=== PATIENT | female | born 1985 | race Hispanic/Latino ===

== ENCOUNTER 2019-07-07 02:48 | Inpatient (IN) | payer OTHER ==
[2019-07-07] MEDS ORDERED: Ringers Lactate 1,000 ML IV PRN (04:02)
[2019-07-07] MEDS ORDERED: BUTORPHANOL 1 MG/ML INJ IV PRN (04:02)
[2019-07-07] MEDS ORDERED: METHYLERGONOVINE 0.2MG/ML AMP IM PRN (04:08)
[2019-07-07] MEDS ORDERED: PROMETHAZINE 25 MG/ML VIAL IM PRN (04:08)
[2019-07-07] MEDS ORDERED: CARBOPROST TROME 250 MCG/ML IM PRN (04:08)
[2019-07-07 04:42] LABS: Absolute Lymphocytes (CBC) 2.7 K/uL (0.7-4.9); Basophils % 0.3 % (0-1.3); Hematocrit 36.1 % (36.0-45.0); MPV 8.5 fL (7.6-11.3); RBC Red Blood Cell Count 4.01 M/uL (3.86-4.86)
[2019-07-07] MEDS ORDERED: Ringers Lactate 1,000 ML IV SCH (05:00)
[2019-07-07] MEDS ORDERED: OXYTOCIN/LR 20 UNIT/1,000 ML BAG IV SCH ×2 (05:00→20:00)
[2019-07-07 05:03] VITALS: BMI 34.3
[2019-07-07 06:13] LABS: Urine Appearance CLEAR; Urine Bilirubin NEGATIVE (NEG); Urine Blood NEGATIVE (NEG); Urine Color YELLOW; Urine Glucose NEGATIVE (NEG); Urine Microscopic Reflex NO UMIC; Urine Protein NEGATIVE (NEG); Urine Urobilinogen 0.2 mg/dL (0.2-1.0)
--- NOTE | 2019-07-07 06:41 | PREOPHP ---
Date of Admission: 07/07/2019 A 34-year-old 3, para 2, at 39 weeks 2 days, Rh positive, immune to Rubella. Negative beta s trep screen, 2 cm this morning. Cervix is posterior, 50% effaced, baby well applied. Rupture of mem branes, clear fluid. FHTs normal, reactive. Anticipate more rapid progress once she gets to 4 to 5 cm. Patient will be requesting epidural. Full labor talk given. Anticipate delivery sometime later today. ERIC/MAISHA Voice ID: [id number]
[2019-07-07] MEDS ORDERED: LIDOCAINE 1% 20 ML MDV ONE (07:59)
[2019-07-07] MEDS ORDERED: ROPIVACAINE HCL 100 ML IV PRN (08:34)
[2019-07-07] MEDS ORDERED: FENTANYL CITR 100 MCG/2 ML IV ONE (08:35)
[2019-07-07] MEDS ORDERED: ROPIVACAINE HCL 0.2% 20ML AMP IV ONE (08:35)
[2019-07-07] MEDS ORDERED: FENTANYL/BUPIVACAINE/NS/PF 200 MCG/100 ML BAG EP PRN (11:35)
[2019-07-07] MEDS ORDERED: BUPIVACAINE 0.25% PF 30 ML VIAL IV ONE (14:32)
--- NOTE | 2019-07-07 14:32 | PN ---
Patient is having contractions regularly but not extremely uncomfortable yet. She has had 1 dose of Stadol. She is 3 cm, 70% effaced, vertex, -1 station. We will continue to increase the Pitocin. I think that once she reaches 5 cm we will start seeing more rapid dilation. She probably will be requ esting an epidural. ERIC/MAISHA Voice ID: [id number] Report ID: [id number]
[2019-07-07] MEDS ORDERED: DIPHENHYDRAMINE 25 MG TAB/CAP PO PRN (19:21)
[2019-07-07] MEDS ORDERED: BISACODYL 10 MG RECTAL SUPP RECT PRN (19:21)
[2019-07-07] MEDS ORDERED: DOCUSATE NA/SENNA CONC 1 TAB PO PRN (19:21)
[2019-07-07] MEDS ORDERED: Oxycodone HCl/Acetaminophen 1 TAB TAB PO PRN ×2 (19:21)
[2019-07-07 22:51] LABS: RPR (Rapid Plasma Reagin) NON-REACT (NON-REACT)
[2019-07-08] MEDS: ACETAMINOPHEN 500 MG TAB PO PRN ×2 (00:23→05:10)
--- NOTE | 2019-07-08 03:30 | OP ---
Surgeon: Meek Sorenson MD A 34-year-old 3, para 2, 39 weeks 2 days for induction approximately 2.5 to 3 cm on admission . Rupture of membranes, clear fluid. Stadol IV, Phenergan IM. Initially at 4.5 to 5 cm, requested and received epidural anesthesia. Second stage of approximately 30 minutes. Spontaneous vaginal del francisco of a 7-pound 15-ounce male , Apgars 9 and 9. No episiotomy. No lacerations worthy of hernández turing. Schultze delivery of the placenta, which was inspected and noted be heavily calcified, but o therwise normal. Less than 300 mL blood loss. Rh positive, immune to Rubella, and negative beta str ep screen. Patient tolerated all procedures well. Final Diagnoses: Term uterine 39 weeks 2 days, vaginal delivery, epidural anesthesia. ERIC/MAISHA Voice ID: [id number] Report ID: [id number]
--- NOTE | 2019-07-08 08:17 | PN ---
Patient is now good 4 cm. Baby is still at -1 station, may be slightly higher. Patient is doing solo te well. She has had 2 doses of Stadol, will be requesting epidural, but she says she will wait anot her half an hour and then if the baby comes down a little bit more into the pelvis then at that point we will order the epidural. Full discussion, anticipate more rapid progress once she gets to 5 cm a nd the baby comes down slightly more into the pelvis. ERIC/MAISHA Voice ID: [id number] Report ID: [id number]
[2019-07-08] MEDS: IBUPROFEN 200 MG TAB PO PRN ×2 (11:15→17:50)
[2019-07-08 16:20] VITALS: BP 133/74; TEMP 98.1
--- NOTE | 2019-07-09 01:28 | DS ---
Date of Discharge: 07/08/2019 History: A 34-year-old 3, para 2, 39 weeks 2 days, delivered a 7-pound 15-ounce male infant, Apgars 9 and 9. Epidural anesthesia. No episiotomy. No lacerations worthy of suturing. Delivery of the placenta, which was inspected and noted to be intact and normal. A 300 mL or less blood loss. Rh positive, immune to Rubella. Negative beta strep screen. ; afebrile, ambulating and voiding. Lochia is normal. No post epidural problems. Will be dismissed either later this evening or tomorrow morning. To report back to my office in 6 weeks for followup. To report any temperature elevation of 100 degrees or greater, severe pain, heavy bleeding, or any other type of abnormalities . Tdap has been administered during the . She has no post epidural problems. Final Diagnoses: Term intrauterine , 39 weeks 2 days, vaginal delivery, epidural anesthesia . ERIC/MAISHA Voice ID: [id number] Report ID: [id number]
[2019-07-10 04:18] LABS: HBsAG Nonreactive (Nonreactive)
== END 2019-07-08 22:25 | disposition home or self-care (01) | DRG 807 ==
LOC: 2ND-WC 03:57
PROVIDERS: ADMIT Specialist; ATTEND Specialist
PROC: 10E0XZZ Delivery of Products of Conception, External Approach (ICD-10-PCS; principal; 2019-07-07)
PROC: 10907ZC Drainage of Amniotic Fluid, Therapeutic from Products of Conception, Via Natural or Artificial Opening (ICD-10-PCS; 2019-07-07)
DX: O80 Encounter for full-term uncomplicated delivery (principal); Z37.0 Single live birth; Z3A.39 39 weeks gestation of pregnancy; Z88.0 Allergy status to penicillin
CPT/HCPCS: 36415; 81003; 85025; 86592; 86901; 87340; J0595; J2210; J2550; J2590; J7120

== ENCOUNTER 2020-08-15 03:27 | Inpatient (IN) | payer OTHER, SELFPAY ==
--- OUTSIDE RECORDS SUMMARY | 2020-08-15 03:29 | XMS REPORT | Continuity of Care Document ---
:[address] [facility] t Address [address] [place] [address] Care Team Providers Name Role Phone Yael Ulloa MD Attending Clinician Problems This patient has no known problems. Allergies, Adverse Reactions, Alerts This patient has no known allergies or adverse reactions. Medications This patient has no known medications. Procedures This patient has no known procedures. Encounters Start End Encounter Admission Attending Care Care Encounter Source Date/Time Date/Time Type Type Clinicians Facility Department ID 2020-08-07 2020-08-07 Emergency LASHAWN Ulloa [id number] 05:34:00 06:52:00 Autumn Estrada [id number] [place] [id number] [place] [id number] Results This patient has no known results.
--- OUTSIDE RECORDS SUMMARY | 2020-08-15 03:30 | XMS REPORT | Summary of Care ---
:1985 Author Organization [facility] - Health Address [address] [place] [id number] Care Team Providers Name Role Phone Pcp, Does Not Have A Primary Care Provider Reason for Referral Other (OCTAVIO) Status Reason Specialty Diagnoses / Referred By Referred To Procedures Contact Contact New Request Diagnoses Right upper quadrant abdominal pain Autumn Ulloa, Tammie Patel, Procedures Discharge Follow-up: Specialty Provider TAMMIE PATEL; 3-5 Days MD VENTURA [address] [facility] [address] [facility] [id number] [place], [place] Beni 2.100 [address] [place], [place] Phone: [phone] Phone: Fax: Reason for Visit Reason Comments Abdominal Pain Auth/Cert Status Reason Specialty Diagnoses / Referred By Referred To Procedures Contact Contact Emergency Medicine Ad[facility] Em ergency Dept [address] [place] [address] Fax: Encounter Details Date Type Department Care Team Description 08/07/2020 Emergency ADC-Emergency Autumn Ulloa Right upp er quadrant Department abdominal pain (Primary [address] [facility] [address]) [place] [address] [id number] [place] [address] [phone] Allergies Active Allergy Reactions Severity Noted Date Comments Penicillins Hives 02/01/2016 documented as of this encounter (statuses as of 08/07/2020) Medications Medication Sig Dispensed Refills Start Date End Date Status ondansetron (ZOFRAN, Take 1 tablet by 12 tablet 0 02/01/2016 Active HYDROCHLORIDE,) 4 mouth every 6 (six) mg tablet hours as needed for Nausea and Vomiting (N/V). tramadol-acetaminophe Take 1 tablet by 12 tablet 0 02/01/2016 Active n (ULTRACET) 37.5-325 mouth every 6 (six) mg per tablet hours as needed for Pain. dicyclomine 20 mg Take 1 tablet by 20 tablet 0 08/07/2020 Active tabletIndications: mouth every 6 (six) Right upper quadrant hours as needed for abdominal pain Abdominal pain. ondansetron (ZOFRAN) Take 1 tablet by 12 tablet 0 08/07/2020 Active 4 mg mouth every 8 tabletIndications: (eight) hours as Right upper quadrant needed for Nausea abdominal pain and Vomiting (N/V). documented as of this encounter (statuses as of 08/07/2020) Active Problems No known active problemsdocumented as of this encounter (statuses as of 08/07/2020) Social History Tobacco Use Types Packs/Day Years Used Date Never Assessed Sex Assigned at Date Recorded Not on file COVID-19 Exposure Response Date Recorded In the last month, have you been in contact with No / Unsure 08/07/2020 5:36 AM SOLDERER FURNACE someone who was confirmed or suspected to have Coronavirus / COVID-19? documented as of this encounter Last Filed Vital Signs Vital Sign Reading Time Taken Comments Blood Pressure 109/66 08/07/2020 6:05 AM SOLDERER FURNACE Pulse 85 08/07/2020 6:30 AM SOLDER[facility] FURNACE Temperature 37.4 C (99.3 F) 08/07/2020 5:42 AM SOLDERER FURNACE Respiratory Rate 18 08/07/2020 5:42 AM SOLDERER FURNACE Oxygen Saturation 99% 08/07/2020 6:30 AM SOLDERER FURNACE Inhaled Oxygen Concentration - - Weight 81.6 kg (180 lb) 08/07/2020 5:42 AM SOLDERER FURNACE Height 167.6 cm (5' 6") 08/07/2020 5:42 AM SOLDERER FURNACE Body Mass Index 29.05 08/07/2020 5:42 AM SOLDERER FURNACE documented in this encounter Discharge Instructions Autumn Jaffe MD - 08/07/2020 DIAGNOSIS Diagnoses that have been ruled out: None Diagnoses that are still under consideration: None Final diagnoses: Right upper quadrant abdominal pain NO LIFE-THREATENING FINDINGS ON TODAY'S EXAM. PROCEDURES IN THE ER TODAY: Orders Placed This Encounter Procedures Complete Metabolic Panel CBC with Differential Lipase, Serum Urinalysis POCT Test MEDICATIONS ADMINISTERED IN THE ER TODAY AND DISCHARGE MEDICATIONS: Orders Placed This Encounter Medications morpHINE injection 4 mg ondansetron (ZOFRAN (PF)) injection 4 mg FOLLOW-UP RECOMMENDATIONS: RECOMMEND FOLLOW-UP WITH A PRIMARY CARE PROVIDER OR SPECIALIST IN 2-5 DAYS, ESPECIALLY IF NO IMPROVEMENT IN SYMPTOMS. MAY FOLLOW-UP WITH A PROVIDER OF YOUR CHOICE, SUCH : 1. A PHYSICIAN OF YOUR CHOICE 2. [facility], . LOCATIONS IN [facility] 3. [facility], [address] [place] [address]; [phone] OR, IF YOU WISH TO FOLLOW-UP WITHIN THE [facility], MAY TRY THESE OPTIONS (CLINIC APPOINTMENTS AVAILABLE ON [id number] BASIS): 1. SCHEDULE AN APPOINTMENT ONLINE AT WWW.[facility] 2. OR CALL THE [facility] ACCESS CENTER AT OR 3. OR CALL YOUR [facility] PHYSICIAN'S OFFICE DIRECTLY IF YOU ARE ALREADY AN ESTABLISHED [facility] PATIENT. RETURN TO ER FOR WORSENING OF SYMPTOMS documented in this encounter ED Notes Alisia Gale RN - 08/07/2020 5:39 AM CSTCC: Pt reports RUQ abdominal pain off and on x 2 mths. Pt reports her PCP thinks it is her gallbladder, but she hasn't followed up with specialist or had any tests. Pt reports acid reducers help, and the teofilo pizza she ate tonight made it worse. Pt denies vomiting. 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 Pt has had intermittent episodes for the past several months and was evaluatedby her PCP Dr. Nelson in [place] for same and told she might have gallstones. Current episode began last HS after patient ate some pizzas. Denies any fever. 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 used: No Abdominal Pain Pain location: Epigastric Pain quality: sharp Pain radiates to: RUQ Pain severity: Severe Onset quality: Gradual Duration: 12 hours Timing: Intermittent Chronicity: Recurrent Context: diet changes and eating Context: not alcohol use, not awakening from sleep, not laxative use, not medication withdrawal, notrecent illness, not recent travel, not retching, not sick contacts, not suspicious food intake and not trauma Relieved by: Nothing Worsened by: Nothing Ineffective treatments: Antacids Associated symptoms: nausea Associated symptoms: no anorexia, no belching, no chest pain, no chills, no constipation, no cough, no diarrhea, no dysuria, no fatigue, no fever, no flatus, no hematemesis, no hematochezia, no hematuria, no melena, no shortness of breath, no sore throat, no vaginal bleeding, no vaginal discharge and no vomiting Risk factors: not and no recent hospitalization Past Medical History/Immunizations: History reviewed. No pertinent past medical history. Tetanus received in last 5 years: Unknown Allergies: Allergies Allergen Reactions Pcn [Penicillins] Hives Past Social History: Substance & Sexual Activity No substance use or sexual activity history on file. Past Surgical History: History reviewed. No pertinent surgical history. Review of Systems: Review of Systems Constitutional: Negative. Negative for chills, fatigue and fever. HENT: Negative. Negative for sore throat. Eyes: Negative. Respiratory: Negative. Negative for cough and shortness of breath. Breasts: Negative. Cardiovascular: Negative. Negative for chest pain. Gastrointestinal: Positive for abdominal pain and nausea. Negative for anorexia, constipation, diarrhea, flatus, hematemesis, hematochezia, melena and vomiting. Genitourinary: Negative. Negative for dysuria, hematuria, vaginal bleeding and vaginal discharge. Musculoskeletal: Negative. Skin: Negative. Neurological: Negative. Psychiatric/Behavioral: Negative. Endocrine: Endocrine negative Physical Exam: ED Triage Vitals [08/07/20 0542] Weight 81.6 kg (180 lb) Actual or estimated Estimated by patient/family report Height 1.676 m (5' 6") BP (!) 145/93 Pulse 96 Resp 18 Temp 37.4 C (99.3 F) Temp source Oral SpO2 100 % Measured on Room air Physical Exam Vitals signs and nursing note reviewed. Constitutional: General: She is not in acute distress. Appearance: Normal appearance. She is well-developed and normal weight. She is not ill-appearing,toxic-appearing or diaphoretic. HENT: Head: Normocephalic and atraumatic. Nose: Nose normal. No congestion or rhinorrhea. Mouth/Throat: Mouth: Mucous membranes are moist. Pharynx: Oropharynx is clear. No oropharyngeal exudate or posterior oropharyngeal erythema. Eyes: General: No scleral icterus. Right eye: No discharge. Left eye: No discharge. Conjunctiva/sclera: Conjunctivae normal. Pupils: Pupils are equal, round, and reactive to light. Neck: Musculoskeletal: Normal range of motion and neck supple. No neck rigidity or muscular tenderness. Thyroid: No thyromegaly. Cardiovascular: Rate and Rhythm: Normal rate and regular rhythm. Pulses: Normal pulses. Heart sounds: Normal heart sounds. No murmur. Pulmonary: Effort: Pulmonary effort is normal. No respiratory distress. Breath sounds: Normal breath sounds. No stridor. No wheezing, rhonchi or rales. Chest: Chest wall: No tenderness. Abdominal: General: Bowel sounds are normal. There is no distension. Palpations: Abdomen is soft. There is no mass. Tenderness: There is no abdominal tenderness. There is no right CVA tenderness, left CVA tenderness, guarding or rebound. Hernia: No hernia is present. Musculoskeletal: Normal range of motion. General: No swelling, tenderness, deformity or signs of injury. Right lower leg: No edema. Left lower leg: No edema. Lymphadenopathy: Cervical: No cervical adenopathy. Skin: General: Skin is warm and dry. Capillary Refill: Capillary refill takes less than 2 seconds. Coloration: Skin is not jaundiced or pale. Findings: No bruising, erythema, lesion or rash. Neurological: General: No focal deficit present. Mental Status: She is alert and oriented to person, place, and time. Cranial Nerves: No cranial nerve deficit. Sensory: No sensory deficit. Motor: No weakness or abnormal muscle tone. Coordination: Coordination normal. Gait: Gait normal. Deep Tendon Reflexes: Reflexes normal. Psychiatric: Behavior: Behavior normal. Thought Content: Thought content normal. Judgment: Judgment normal. Radiology: No results found for this visit on 08/07/20. Lab Results (24h): Recent Results (from the past 24 hour(s)) Complete Metabolic Panel Collection Time: 08/07/20 5:47 AM Result Value Ref Range NA 140 135 - 145 mmol/L K 3.7 3.5 - 5.0 mmol/L CL 105 98 - 108 mmol/L CO2 TOTAL 26 23 - 31 mmol/L AGAP 9 2 - 16 BUN 12 7 - 23 mg/dL GLUCOSE 109 70 - 110 mg/dL CREATININE 0.67 0.50 - 1.04 mg/dL TOTAL BILI 0.5 0.1 - 1.1 mg/dL CALCIUM 9.1 8.6 - 10.6 mg/dL T PROTEIN 7.6 6.3 - 8.2 g/dL ALBUMIN 4.2 3.5 - 5.0 g/dL ALK PHOS 65 34 - 122 U/L ALTv 9 5 - 35 U/L AST(SGOT) 17 13 - 40 U/L eGFR Calculation (Non-) 100.8 mL/min/1.73m2 eGFR Calculation () 122.1 mL/min/1.73m2 CBC with Differential Collection Time: 08/07/20 5:47 AM Result Value Ref Range WBC 8.85 4.30 - 11.10 10*3/L RBC 4.13 3.93 - 5.25 10*6/L HGB 11.6 11.6 - 15.0 g/dL HCT 36.7 35.7 - 45.2 % MCV 88.9 80.6 - 95.5 fL MCH 28.1 25.9 - 32.8 pg MCHC 31.6 31.6 - 35.1 g/dL RDW-SD 40.0 39.0 - 49.9 fL RDW-CV 12.2 12.0 - 15.5 % PLT 473 (H) 166 - 358 10*3/L MPV 9.9 9.5 - 12.9 fL NRBC/100 WBC 0.0 0.0 - 10.0 /100 WBCs NRBC x10^3 <0.01 10*3/L GRAN MAT (NEUT) % 69.1 % IMM GRAN % 0.20 % LYMPH % 22.1 % MONO % 4.9 % EOS % 3.1 % BASO % 0.6 % GRAN MAT x10^3(ANC) 6.12 1.88 - 7.09 10*3/uL IMM GRAN x10^3 <0.03 0.00 - 0.06 10*3/uL LYMPH x10^3 1.96 1.32 - 3.29 10*3/uL MONO x10^3 0.43 0.33 - 0.92 10*3/uL EOS x10^3 0.27 0.03 - 0.39 10*3/uL BASO x10^3 0.05 0.01 - 0.07 10*3/uL Lipase, Serum Collection Time: 08/07/20 5:47 AM Result Value Ref Range LIPASE 97 0 - 220 U/L Urinalysis Collection Time: 08/07/20 5:47 AM Result Value Ref Range APPEARANCE Clear Clear COLOR Yellow Yellow PH 8.0 4.8 - 8.0 SP GRAVITY 1.015 1.003 - 1.030 GLU U QUAL Negative Negative BLOOD Trace (A) Negative KETONES Negative Negative PROTEIN Negative Negative UROBILIN 0.2 mg/dL 0-1.0 mg/dL BILIRUBIN Negative Negative NITRITE Negative Negative LEUK SHANE Negative Negative RBC/HPF 2 0 - 3 HPF WBC/HPF 2 0 - 5 HPF BACTERIA Few (A) Negative SQ EPITH 2 HPF POCT Test Collection Time: 08/07/20 5:49 AM Result Value Ref Range POCT PREG Negative On board controls acceptable with C Line Present POCT PREG LOT # [id number] POCT PREG TEST DATE 11/17/2021 Orders and Treatments: Orders Placed This Encounter Procedures Complete Metabolic Panel CBC with Differential Lipase, Serum Urinalysis POCT Test Orders Placed This Encounter Medications morpHINE injection 4 mg ondansetron (ZOFRAN (PF)) injection 4 mg dicyclomine 20 mg tablet ondansetron (ZOFRAN) 4 mg tablet ED COURSE ED Course as of Aug 07 06 Sat Aug 07, 2020 0630 6:30 AM- Pt re-examined. Pain completely resolved Will refer patient for further evaluation and definitive management [WY] ED Course User Index [WY] Autumn Ulloa MD MDM: Coding Scoring Tools: No data recorded Diagnosis/Impression: ICD-10-CM ICD-9-CM 1. Right upper quadrant abdominal pain R10.11 789.01 Disposition/Condition: ED Disposition ED Disposition Condition Comment Disch - Home Stable Discharge Medications: Patient's Medications START taking these medications DICYCLOMINE 20 MG TABLET Take 1 tablet by mouth every 6 (six) hours as needed for Abdominal pain. ONDANSETRON (ZOFRAN) 4 MG TABLET Take 1 tablet by mouth every 8 (eight) hours as needed for Nausea and Vomiting (N/V). CONTINUE taking these medications which have NOT CHANGED ONDANSETRON (ZOFRAN, HYDROCHLORIDE,) 4 MG TABLET Take 1 tablet by mouth every 6 (six) hours as needed for Nausea and Vomiting (N/V). TRAMADOL-ACETAMINOPHEN (ULTRACET) 37.5-325 MG PER TABLET Take 1 tablet by mouth every 6 (six) hours as needed for Pain. START taking Modified Medications as Prescribed No medications on file STOP taking these medications No medications on file Follow-up: Contact information for follow-up Pcp, Patient Does Not Have A Relationship: PCP - [address] [address] Electronically signed by: Autumn Ulloa MD 08/07/2020 6:25 AM ERER FURNACE documented in this encounter Miscellaneous Notes ED Nurse Note - Alisia Gale, RN - 08/07/2020 6:38 AM CSTPt given printed and verbal discharge instructions regarding RUQ abd pain, encouraged hydration, avoiding fried, greasy foods Prescriptions provided Pt verbalized understanding of instructions,pt encouraged to follow up with pcp and or Dr. Patel Advised to seek medical attention for new/prolonged/worsening of symptoms, No adverse reaction to meds given in ER noted upon discharge PIV d'cd, dressing to site, catheter in tact. Awake, alert oriented, resp reg unlabored, skin w/d, pt leaving in no apparent distress, ERER FURNACE documented in this encounter Plan of Treatment Health Maintenance Due Date Last Done Comments VARICELLA VACCINES (1 of 2 - 1987 2-dose childhood series) Depression Screening 1998 DTaP,Tdap,and Td Vaccines ( - 2005 Tdap) PAP SMEAR 07/21/2013 07/21/2010 INFLUENZA VACCINE (#1) 2020 PNEUMOCOCCAL 0-64 YEARS COMBINED Aged Out No longer eligible based on SERIES patient's age to complete this topic documented as of this encounter Procedures Procedure Name Priority Date/Time Associated Comments Diagnosis POCT TEST Routine 08/07/2020 5:49 AM Right upper R esults for this SOLDERER FURNACE quadrant abdominal procedure are in pain the results section. URINALYSIS STAT 08/07/2020 5:47 AM Right upper Results for this SOLDERER FURNACE quadrant abdominal procedure are in pain the results section. CBC WITH DIFF STAT 08/07/2020 5:47 AM Right upper Results for this SOLDERER FURNACE quadrant abdominal procedure are in pain the results section. COMP. METABOLIC STAT 08/07/2020 5:47 AM Right upper Resul ts for this PANEL ([id number]) SOLDERER FURNACE quadrant abdominal procedur e are in pain the results section. LIPASE STAT 08/07/2020 5:47 AM Right upper Results for this SOLDERER FURNACE quadrant abdominal procedure are in pain the results section. documented in this encounter Results POCT Test (08/07/2020 5:49 AM SOLDERER FURNACE) Pathologist Sig nature POCT PREG Negative On board controls acceptable Present with C Line POCT PREG LOT # [id number] POCT PREG TEST DATE 11/17/2021 Specimen Urine - URINE, CLEAN CATCH Urinalysis (08/07/2020 5:47 AM SOLDERER FURNACE) [facility] Sig critical access hospital APPEARANCE Clear Clear [facility] COLOR Yellow Yellow [facility] PH 8.0 4.8 - 8.0 [facility] SP GRAVITY 1.015 1.003 - 1.030 [facility] GLU U QUAL Negative Negative [facility] BLOOD Trace (A) Negative [facility] KETONES Negative Negative [facility] PROTEIN Negative Negative [facility] UROBILIN 0.2 mg/dL 0-1.0 mg/dL [facility] BILIRUBIN Negative Negative [facility] NITRITE Negative Negative [facility] LEUK SHANE Negative Negative [facility] RBC/HPF 2 0 - 3 HPF [facility] WBC/HPF 2 0 - 5 HPF [facility] BACTERIA Few (A) Negative [facility] SQ EPITH 2 HPF [facility] Specimen Urine - URINE, CLEAN CATCH Performing Organization Address [facility] Phone Number [facility] CLIA: [id number] [place] [address] Lipase, Serum (08/07/2020 5:47 AM SOLDERER FURNACE) [facility] LIPASE 97 0 - 220 U/L [facility] Specimen Blood - VENOUS Performing Organization Address City/[facility] Phone Number [facility] CLIA: [id number] [place] [address] CBC with Differential (08/07/2020 5:47 AM SOLDERER FURNACE) [facility] WBC 8.85 4.30 - 11.10 [facility] 10*3/L [facility] RBC 4.13 3.93 - 5.25 [facility] 10*6/L [facility] HGB 11.6 11.6 - 15.0 g/dL [facility] HCT 36.7 35.7 - 45.2 % [facility] MCV 88.9 80.6 - 95.5 fL [facility] MCH 28.1 25.9 - 32.8 pg [facility] MCHC 31.6 31.6 - 35.1 g/dL [facility] RDW-SD 40.0 39.0 - 49.9 fL [facility] RDW-CV 12.2 12.0 - 15.5 % [facility] PLT 473 (H) 166 - 358 [facility] 10*3/L [facility] MPV 9.9 9.5 - 12.9 fL [facility] NRBC/100 WBC 0.0 0.0 - 10.0 /100 [facility] WBCs [facility] NRBC x10^3 <0.01 10*3/L [facility] GRAN MAT (NEUT) % 69.1 % [facility] IMM GRAN % 0.20 % [facility] LYMPH % 22.1 % [facility] MONO % 4.9 % [facility] EOS % 3.1 % [facility] BASO % 0.6 % [facility] GRAN MAT x10^3(ANC) 6.12 1.88 - 7.09 [facility] 10*3/uL [facility] IMM GRAN x10^3 <0.03 0.00 - 0.06 [facility] 10*3/uL [facility] LYMPH x10^3 1.96 1.32 - 3.29 [facility] 10*3/uL [facility]ITAL [facility] MONO x10^3 0.43 0.33 - 0.92 [facility] 10*3/uL [facility]ITAL [facility] EOS x10^3 0.27 0.03 - 0.39 [facility] 10*3/uL H[facility]ITAL [facility] BASO x10^3 0.05 0.01 - 0.[address]3/uL [facility] Specimen Blood - VENOUS Performing Organization Address City/State/Zipcode Phone Number [facility] CLIA: [id number] [place] [address] Complete Metabolic Panel (08/07/2020 5:47 AM SOLDERER FURNACE) Pathologist Sig nature NA 140 135 - 145 mmol/L [facility] K 3.7 3.5 - 5.0 mmol/L [facility] CL 105 98 - 108 mmol/L [facility] CO2 TOTAL 26 23 - 31 mmol/L [facility] AGAP 9 2 - 16 [facility] BUN 12 7 - 23 mg/dL [facility] GLUCOSE 109 70 - 110 mg/dL [facility] CREATININE 0.67 0.50 - 1.04 [facility] mg/dL HOSPITAL [facility] TOTAL BILI 0.5 0.1 - 1.1 mg/dL [facility] CALCIUM 9.1 8.6 - 10.6 mg/dL [facility] T PROTEIN 7.6 6.3 - 8.2 g/dL [facility] ALBUMIN 4.2 3.5 - 5.0 g/dL [facility] ALK PHOS 65 34 - 122 U/L [facility] ALTv 9 5 - 35 U/L [facility] AST(SGOT) 17 13 - 40 U/L [facility] eGFR Calculation 100.8 mL/min/1.73m2 [facility] (Non-) [facility] LAB[facility] Y eGFR Calculation 122.1 mL/min/1.73m2 [facility] () [facility] Specimen Blood - VENOUS Narrative Performed At Association of Glomerular Filtration Rate (GFR) [facility] and Staging of Kidney Disease* + + +- + | GFR (mL/min/1.73 m2) | With Kidney Damage | Without Kidney Damage + + +- + | >90 | Stage one | Normal + + +- + | 60-89 | Stage two | Decreased GFR + + +- + | 30-59 | Stage three | Stage three + + +- + | 15-29 | Stage four | Stage four + + +- + | <15 (or dialysis) | Stage five | Stage five + + +- + *Each stage assumes the associated GFR level has been in effect for at least three months. Stages 1 to 5, with or without kidney disease, indicate chronic kidney disease. Notes: Determination of stages one and two (with eGFR >59mL/min/1.73 m2) requires estimation of kidney damage for at least three months as defined by structural or functional abnormalities of the kidney, manifested by either: Pathological abnormalities or Markers of kidney damage (including abnormalities in the composition of the blood or urine or abnormalities in imaging tests). Performing Organization Address City/State/Zipcode Phone Number [facility] CLIA: [id number] [place] [address] documented in this encounter Visit Diagnoses Diagnosis Right upper quadrant abdominal pain - Pr imary Abdominal pain, right upper quadrant documented in this encounter Administered Medications Medication Order MAR Action Action Date Dose Rate Site morpHINE injection 4 mg Given 08/07/2020 5:48 AM SOLDERER FURNACE 4 mg 4 mg, Slow IV Push, ONCE, 1 dose, 08/07/20 at 0700, STAT ondansetron (ZOFRAN (PF)) injection 4 mg Given 08/07/2020 5:48 AM SOLDERER FURNACE 4 mg 4 mg, Slow IV Push, ONCE, 1 dose, 08/07/20 at 0700, OCTAVIO documented in this encounter
[2020-08-15] MEDS ORDERED: ONDANSETRON 4 MG/2 ML VIAL ONE ×2 (04:11→11:42)
[2020-08-15] MEDS ORDERED: NA CHLORIDE 0.9% 1,000 ML ONE (04:11)
[2020-08-15] MEDS ORDERED: MORPHINE 4 MG/ML SYR ONE ×2 (04:11→08:00)
[2020-08-15 04:35] LABS: Absolute Lymphocytes (CBC) 2.6 K/uL (0.7-4.9); Basophils % 0.8 % (0-1.3); Hematocrit 40.2 % (36.0-45.0); Lymphocytes % 23.8 % (15.3-44.8); MPV 8.5 fL (7.6-11.3); RBC Red Blood Cell Count 4.66 M/uL (3.86-4.86)
[2020-08-15] MEDS ORDERED: FAMOTIDINE 20 MG/2 ML VIAL IV ONE (04:38)
[2020-08-15 04:50] LABS: ALT/SGPT 15 U/L (12-78); AST/SGOT 12 U/L (15-37); Albumin 3.8 g/dL (3.4-5.0); Alkaline Phosphatase 78 U/L (45-117); BUN Blood Urea Nitrogen 13 mg/dL (7-18); Bicarbonate 29 mmol/L (21-32); Bilirubin Direct < 0.1 mg/dL (0-0.2); Bilirubin Total 0.4 mg/dL (0.2-1.0); Glucose Level 97 mg/dL (74-106); Lipase 146 U/L (73-393); Potassium 3.5 mmol/L (3.5-5.1); Protein, Total 8.5 g/dL (6.4-8.2); Sodium Level 140 mmol/L (136-145)
[2020-08-15 05:58] LABS: Urine Blood 2+ (NEG); Urine Glucose NEGATIVE (NEG); Urine Protein NEGATIVE (NEG); Urine pH 6.5 (5.0-7.0)
[2020-08-15] MEDS ORDERED: METRONIDAZOLE 500mg IVPB 500 MG/100 ML BAG IV ONE (08:00)
[2020-08-15] MEDS ORDERED: CIPROFLOXACIN 400mg IV 400 MG/200 ML BAG IV ONE (08:00)
[2020-08-15] MEDS ORDERED: PROMETHAZINE INJ 25 MG/ML AMP ONE (08:02)
--- NOTE | 2020-08-15 08:07 | EDPHYS ---
Physician Documentation [facility] Name: Renae Menjivar Age: 35 yrs Sex: Female : 1985 Arrival Date: 08/15/2020 Time: 03:28 Bed 19 Private MD: Shalini Nelson H ED Physician Jhoan Chowdary HPI: 08/15 04:20 This 35 yrs old Female presents to ER via Ambulatory with complaints of mh7 Abdominal Pain - RUQ. 04:20 The patient presents with abdominal pain in the right upper quadrant. Onset: The mh7 symptoms/episode began/occurred 3 month(s) ago, and became worse today. The symptoms radiate to back. Associated signs and symptoms: Pertinent positives: nausea and vomiting, Pertinent negatives: anorexia, blood in stools, chest pain, constipation, diarrhea, dysuria, fever, headache, hematuria, palpitations, shortness of breath, vaginal discharge, vomiting blood. The symptoms are described as intermittent, vague, waxing/waning. Modifying factors: The symptoms are alleviated by nothing, the symptoms are aggravated by nothing. Severity of pain: At its worst the pain was moderate today, in the emergency department the pain is unchanged. 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 - Social history:: Smoking status: Patient denies any tobacco usage or history of. ROS: 04:20 Constitutional: Negative for fever, chills, and weight loss, Eyes: Negative for injury, mh7 pain, redness, and discharge, ENT: Negative for injury, pain, and discharge, Neck: Negative for injury, pain, and swelling, Cardiovascular: Negative for chest pain, palpitations, and edema, Respiratory: Negative for shortness of breath, cough, wheezing, and pleuritic chest pain, : Negative for injury, bleeding, discharge, and swelling, MS/Extremity: Negative for injury and deformity, Skin: Negative for injury, rash, and discoloration, Neuro: Negative for headache, weakness, numbness, tingling, and seizure, Psych: Negative for depression, anxiety, suicide ideation, homicidal ideation, and hallucinations, Allergy/Immunology: Negative for hives, rash, and allergies, Endocrine: Negative for neck swelling, polydipsia, polyuria, polyphagia, and marked weight changes, Hematologic/Lymphatic: Negative for swollen nodes, abnormal bleeding, and unusual bruising. Exam: 04:20 Head/Face: Normocephalic, atraumatic. Eyes: Pupils equal round and reactive to light, mh7 extra-ocular motions intact. Lids and lashes normal. Conjunctiva and sclera are non-icteric and not injected. Cornea within normal limits. Periorbital areas with no swelling, redness, or edema. Neck: Trachea midline, no thyromegaly or masses palpated, and no cervical lymphadenopathy. Supple, full range of motion without nuchal rigidity, or vertebral point tenderness. No Meningismus. Chest/axilla: Normal chest wall appearance and motion. Nontender with no deformity. No lesions are appreciated. Cardiovascular: Regular rate and rhythm with a normal S1 and S2. No gallops, murmurs, or rubs. Normal PMI, no JVD. No pulse deficits. Respiratory: Lungs have equal breath sounds bilaterally, clear to auscultation and percussion. No rales, rhonchi or wheezes noted. No increased work of breathing, no retractions or nasal flaring. 04:20 Back: No spinal tenderness. No costovertebral tenderness. Full range of motion. Skin: Warm, dry with normal turgor. Normal color with no rashes, no lesions, and no evidence of cellulitis. MS/ Extremity: Pulses equal, no cyanosis. Neurovascular intact. Full, normal range of motion. Neuro: Awake and alert, GCS 15, oriented to person, place, time, and situation. Cranial nerves II-XII grossly intact. Motor strength 5/5 in all extremities. Sensory grossly intact. Cerebellar exam normal. Normal gait. Psych: Awake, alert, with orientation to person, place and time. Behavior, mood, and affect are within normal limits. 04:20 Constitutional: The patient appears in no acute distress, alert, awake, uncomfortable. 04:20 Abdomen/GI: Inspection: obese Bowel sounds: normal, in all quadrants, Palpation: moderate abdominal tenderness, in the epigastric area and right upper quadrant, Rectal exam: the exam is deferred, because of patient request, Indicators: McBurney's point is not tender, Rodriguez's sign is negative, Rovsing's sign is negative, Obturator sign is negative, Psoas sign is negative, Liver: no appreciated palpable abnormalities, Hernia: not appreciated. Vital Signs: 03:45 BP 144 / 89; Pulse 67; Resp 18; Temp 98.4; Pulse Ox 100% on R/A; ll2 03:50 BP 144 / 89; Pulse 79; Resp 20; Temp 98.3; Pulse Ox 96% on R/A; ll2 04:50 BP 117 / 77; Pulse 71; Resp 16; Pulse Ox 100% on R/A; ll2 05:46 BP 118 / 75; Pulse 75; Resp 16; Pulse Ox 100% ; ll2 07:00 BP 112 / 67; Pulse 57; Resp 16; Pulse Ox 97% ; bp 08:00 BP 121 / 72; Pulse 80; Resp 16; Pulse Ox 99% ; bp 09:00 BP 112 / 75; Pulse 64; Resp 16; Pulse Ox 99% ; bp 10:00 BP 112 / 73; Pulse 59; Resp 17; Temp 98.9; Pulse Ox 99% ; bp MDM: 07:24 Patient medically screened. rn 07:44 ED course: Ultrasound called at shift change and verified that they are here. . rn 08:03 Differential diagnosis: cholecystitis, Cholelithiasis, gastritis, gastroesophageal rn reflux disease, non-specific abd pain. Data reviewed: vital signs, nurses notes, lab test result(s), radiologic studies, CT scan, ultrasound, and as a result, I will admit patient. Counseling: I had a detailed discussion with the patient and/or guardian regarding: the historical points, exam findings, and any diagnostic results supporting the discharge/admit diagnosis. 08:06 ED course: Pt with signs and symptoms of acute cholecystitis, consulted with Dr. otf Morrell, will admit here, normal LFTs/lipase. Cipro/flagyl given due to PCN allergy. NPO since 0 last night.. 08/15 03:55 Order name: Basic Metabolic Panel; Complete Time: 04:51 mh7 08/15 03:55 Order name: CBC with Diff; Complete Time: 04:42 mh7 08/15 03:55 Order name: Hepatic Function; Complete Time: 04:51 08/15 03:55 Order name: Lipase; Complete Time: 04:51 08/15 04:09 Order name: Urine --Ancillary (enter results); Complete Time: 06:26 08/15 04:09 Order name: Urine Dipstick--Ancillary (enter results); Complete Time: 06:26 08/15 03:55 Order name: CT Abd/Pelvis - IV Contrast Only [facility] 08/15 07:11 Order name: US Abdomen Limited; Complete Time: 10:15 08/15 10:16 Order name: COVID-19 rn 08/15 03:55 Order name: IV Saline Lock; Complete Time: 04:19 [facility] 08/15 03:55 Order name: Labs collected and sent; Complete Time: 04:19 [facility] 08/15 03:55 Order name: Urine Dipstick-Ancillary (obtain specimen); Complete Time: 04:19 [facility] 08/15 03:55 Order name: Urine Test (obtain specimen); Complete Time: 04:19 Administered Medications: 04:10 Drug: NS 0.9% 1000 ml Route: IV; Rate: 1000 ml; Site: right antecubital; ll2 04:10 Drug: morphine 4 mg Route: IVP; Site: right antecubital; ll2 05:10 Follow up: Response: No adverse reaction; Pain is decreased; RASS: Alert and Calm (0) ll2 04:10 Drug: Zofran (Ondansetron) 4 mg Route: IVP; Site: right antecubital; ll2 05:10 Follow up: Response: No adverse reaction ll2 05:27 Follow up: Response: Nausea is decreased ll2 04:24 Drug: Pepcid 20 mg Route: IVP; Site: right antecubital; ll2 05:26 Follow up: Response: No adverse reaction ll2 07:45 Drug: morphine 4 mg Route: IVP; Site: right antecubital; bp 10:43 Follow up: Response: Pain is decreased bp 07:45 Drug: Cipro 400 mg Volume: 200 ml; Route: IVPB; Infused Over: 60 mins; Site: right bp antecubital; 10:43 Follow up: IV Status: Completed infusion; IV Intake: 200ml bp 07:45 Drug: Flagyl 500 mg Volume: 100 ml; Route: IVPB; Rate: 200 ml/hr; Infused Over: 30 bp mins; Site: right antecubital; 10:44 Follow up: IV Status: Completed infusion; IV Intake: 100ml bp 07:45 Drug: Promethazine 12.5 mg Route: IVP; Site: right antecubital; bp 10:44 Follow up: Response: Nausea is decreased bp Point of Care Testing: Urine : 04:16 hCG Reading: Negative; ll2 Disposition: 08/15/20 08:07 Hospitalization ordered by Nico Morrell for Observation. Preliminary diagnosis is Cholecystitis, unspecified. - Bed requested for Telemetry/MedSurg (observation). - Status is Observation. bp - Condition is Stable. - Problem is new. - Symptoms have improved. Signatures: Dispatcher [employer] EDMS Jhoan Chowdary MD MD rn Remi Ferreira, RN RN bp Cathleen Bower, OTF VANESSA 2 Young Dunn MD MD mh7 Corrections: (The following items were deleted from the chart) 10:44 08:07 Hospitalization Ordered by Nico Morrell MD for Observation. Preliminary diagnosis bp is Cholecystitis, unspecified. Bed requested for Telemetry/MedSurg (observation). Status is Observation. Condition is Stable. Problem is new. Symptoms have improved. rn
--- NOTE | 2020-08-15 08:07 | ER ---
Nurse's Notes [facility] Name: Renae Menjivar Age: 35 yrs Sex: Female : 1985 Arrival Date: 08/15/2020 Time: 03:28 Bed 19 Private MD: Shalini Nelson H Diagnosis: Cholecystitis, unspecified Presentation: 08/15 03:45 Acuity: TOMA 3 ll2 03:45 Chief complaint: Patient states: right upper quadrant pain off and on for past three ll2 months but got significantly worse this morning around 0300 when she started vomiting. Coronavirus screen: Client denies travel out of the [place] in the last 14 days. At this time, the client does not indicate any symptoms associated with coronavirus-19. Ebola Screen: Patient negative for fever greater than or equal to 101.5 degrees Fahrenheit, and additional compatible Ebola Virus Disease symptoms. 03:45 Method Of Arrival: Ambulatory ll2 05:47 Initial Sepsis Screen: Does the patient meet any 2 criteria? No. Patient's initial ll2 sepsis screen is negative. Does the patient have a suspected source of infection? No. Patient's initial sepsis screen is negative. Risk Assessment: Do you want to hurt yourself or someone else? Patient reports no desire to harm self or others. Onset of symptoms is unknown. Triage Assessment: 04:16 General: Appears uncomfortable, Behavior is cooperative. Pain: Complains of pain in ll2 right upper quadrant. EENT: No signs and/or symptoms were reported regarding the EENT system. Neuro: Level of Consciousness is awake, alert, obeys commands, Oriented to person, place, time, situation. Cardiovascular: Patient's skin is warm and dry. Respiratory: Airway is patent Respiratory effort is even, unlabored, Respiratory pattern is regular, symmetrical. GI: Pt is actively vomiting. : No signs and/or symptoms were reported regarding the genitourinary system. Derm: Skin is intact, is healthy with good turgor, Skin is dry, Skin is pink, warm \T\ dry. Musculoskeletal: Circulation, motion, and sensation intact. Range of motion: intact in all extremities. 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 - Social history:: Smoking status: Patient denies any tobacco usage or history of. Screenin:20 Abuse screen: Denies threats or abuse. Nutritional screening: No deficits noted. ll2 Tuberculosis screening: No symptoms or risk factors identified. Fall Risk None identified. Assessment: 04:20 Reassessment: see triage assessment. ll2 05:25 Reassessment: Patient and/or family updated on plan of care and expected duration. Pain ll2 level reassessed. Patient is alert, oriented x 3, equal unlabored respirations, skin warm/dry/pink. pt resting in bed. 05:47 GI: Bowel sounds present X 4 quads. ll2 06:05 Reassessment: Patient and/or family updated on plan of care and expected duration. Pain ll2 level reassessed. Patient is alert, oriented x 3, equal unlabored respirations, skin warm/dry/pink. 07:00 Reassessment: RECD REPORT FROM CATHLEEN VANESSA. 35YO HF P/W RUQ PAIN, U/S PENDING FOR R/O bp GALLSTONES. 08:00 Reassessment: No changes from previously documented assessment. Patient and/or family bp updated on plan of care and expected duration. Pain level reassessed. Patient is alert, oriented x 3, equal unlabored respirations, skin warm/dry/pink. PER MD, U/S SHOWS CHOLECYSTITIS. ADMIT INITIATED. 10:20 Reassessment: MARJORIE WITH SURGERY AT B/S. bp 10:41 Reassessment: PT GHAZALA TO OR WITH OR NURSE. bp Vital Signs: 03:45 BP 144 / 89; Pulse 67; Resp 18; Temp 98.4; Pulse Ox 100% on R/A; ll2 03:50 BP 144 / 89; Pulse 79; Resp 20; Temp 98.3; Pulse Ox 96% on R/A; ll2 04:50 BP 117 / 77; Pulse 71; Resp 16; Pulse Ox 100% on R/A; ll2 05:46 BP 118 / 75; Pulse 75; Resp 16; Pulse Ox 100% ; ll2 07:00 BP 112 / 67; Pulse 57; Resp 16; Pulse Ox 97% ; bp 08:00 BP 121 / 72; Pulse 80; Resp 16; Pulse Ox 99% ; bp 09:00 BP 112 / 75; Pulse 64; Resp 16; Pulse Ox 99% ; bp 10:00 BP 112 / 73; Pulse 59; Resp 17; Temp 98.9; Pulse Ox 99% ; bp ED Course: 03:28 Patient arrived in ED. am2 03:29 Shalini Nelson DO is Private Physician. am2 03:48 Young Dunn MD is Attending Physician. mh7 04:13 Inserted saline lock: 20 gauge in right antecubital area, using aseptic technique. ds4 Blood collected. 04:14 Cathleen Bower, RN is Primary Nurse. ll2 04:16 Triage completed. ll2 05:21 CT Abd/Pelvis - IV Contrast Only In Process Unspecified. EDMS 05:26 Patient has correct armband on for positive identification. Placed in gown. Bed in low ll2 position. Call light in reach. Side rails up X 1. Pulse ox on. NIBP on. 05:47 No provider procedures requiring assistance completed. ll2 05:47 Arm band placed on right wrist. ll2 06:58 Primary Nurse role handed off by Cathleen Bower RN bp 06:58 Remi Ferreira, OTF is Primary Nurse. bp 07:24 Attending Physician role handed off by Young Dunn MD rn 07:24 Jhoan Chowdary MD is Attending Physician. rn 08:05 US Abdomen Limited In Process Unspecified. EDMS 08:07 Nico Morrell MD is Hospitalizing Provider. rn 10:42 Patient admitted, IV remains in place. bp Administered Medications: 04:10 Drug: NS 0.9% 1000 ml Route: IV; Rate: 1000 ml; Site: right antecubital; ll2 04:10 Drug: morphine 4 mg Route: IVP; Site: right antecubital; ll2 05:10 Follow up: Response: No adverse reaction; Pain is decreased; RASS: Alert and Calm (0) ll2 04:10 Drug: Zofran (Ondansetron) 4 mg Route: IVP; Site: right antecubital; ll2 05:10 Follow up: Response: No adverse reaction ll2 05:27 Follow up: Response: Nausea is decreased ll2 04:24 Drug: Pepcid 20 mg Route: IVP; Site: right antecubital; ll2 05:26 Follow up: Response: No adverse reaction ll2 07:45 Drug: morphine 4 mg Route: IVP; Site: right antecubital; bp 10:43 Follow up: Response: Pain is decreased bp 07:45 Drug: Cipro 400 mg Volume: 200 ml; Route: IVPB; Infused Over: 60 mins; Site: right bp antecubital; 10:43 Follow up: IV Status: Completed infusion; IV Intake: 200ml bp 07:45 Drug: Flagyl 500 mg Volume: 100 ml; Route: IVPB; Rate: 200 ml/hr; Infused Over: 30 bp mins; Site: right antecubital; 10:44 Follow up: IV Status: Completed infusion; IV Intake: 100ml bp 07:45 Drug: Promethazine 12.5 mg Route: IVP; Site: right antecubital; bp 10:44 Follow up: Response: Nausea is decreased bp Point of Care Testing: Urine : 04:16 hCG Reading: Negative; ll2 Intake: 10:43 IV: 200ml; Total: 200ml. bp 10:44 IV: 100ml; Total: 300ml. bp Outcome: 08:07 Decision to Hospitalize by Provider. rn 10:43 Admitted to OR accompanied by nurse, family with patient, via stretcher, with chart. bp 10:43 Condition: stable 10:43 Instructed on the need for admit. 10:44 Patient left the ED. bp Signatures: Dispatcher [employer] EDMS Jhoan Chowdary MD MD rn Swanson, Donovan ds4 Alisia Irving am2 Remi Ferreira RN RN bp Cathleen Bower RN RN ll2 Young Dunn MD MD 7 Corrections: (The following items were deleted from the chart) 04:21 04:00 Zofran (Ondansetron) 4 mg IVP in right antecubital ll2 ll2
--- NOTE | 2020-08-15 08:14 | RAD REPORT ---
EXAM DESCRIPTION: US - Abdomen Exam Limited - 08/15/2020 8:05 am CLINICAL HISTORY: RUQ Pain;Abd pain COMPARISON: Abdomen Pelvis W Contrast dated 08/15/2020 FINDINGS: A single large 2 centimeter mobile gallstone is identified. No other stones or sludge conf irmed. Mild gallbladder wall thickening is present with a trace amount of pericholecystic fluid. No common duct stone or biliary tree dilatation identified. IMPRESSION: Single large mobile gallstone with gallbladder wall thickening and trace amounts of luis cholecystic fluid. Correlation is needed with any clinical or laboratory findings for acute cholecystitis. No duct stone or biliary tree dilatation.
[2020-08-15] MEDS ORDERED: propofoL 200 MG/20 ML VIAL IV ONE (10:45)
[2020-08-15] MEDS ORDERED: LIDOCAINE 2% MPF 5 ML VIAL ONE (10:45)
[2020-08-15] MEDS ORDERED: FENTANYL CITR 100 MCG/2 ML ONE ×2 (10:46→11:56)
[2020-08-15] MEDS ORDERED: ROCURONIUM 50 MG/5 ML VIAL IV ONE (10:46)
[2020-08-15] MEDS ORDERED: BUPIVACAINE 0.5% PF 10 ML VIAL ONE (10:51)
[2020-08-15] MEDS ORDERED: Ringers Lactate 1,000 ML IV ONE (11:04)
[2020-08-15] MEDS ORDERED: KETOROLAC 30 MG/ML INJ ONE (11:42)
[2020-08-15] MEDS ORDERED: dexAMETHasone 10 MG/ML VIAL ONE (11:42)
[2020-08-15] MEDS ORDERED: NEOSTIGMINE 1 MG/ML -5 ML ONE (11:51)
[2020-08-15] MEDS ORDERED: GLYCOPYRROLATE 0.2 MG/ML SYR ONE (11:51)
[2020-08-15] MEDS ORDERED: ONDANSETRON 4 MG/2 ML VIAL IV PRN (12:13)
[2020-08-15] MEDS ORDERED: MORPHINE 4 MG/ML SYR IV PRN (12:13)
[2020-08-15] MEDS ORDERED: D5 0.45 NS 1,000 ML IV SCH (12:13)
--- NOTE | 2020-08-15 12:17 | HP ---
Date of Admission: 08/15/2020 Brief History Of Present Illness: The patient is a 35-year-old female who [facility] with approximately 4 month history of intermittent right upper quadrant abdominal pain. She stat es that she has had multiple gallbladder attacks before in the past when she eats greasy food. She w ent to [facility] at one point several weeks to months ago and had a diagnosis of cholecystitis and was instructed to follow up with a surgeon, however, she opted not to do so because she states s he has no insurance. She noticed that her pain began once again 3 days ago after eating a cheeseburg er and [place] and it got progressively worse and as such, she came to the emergency room with a complaint of right upper quadrant and epigastric abdominal pain similar to the attack she has had be fore in the past. She had nausea, vomiting. No change in bowel or bladder habits. No abdominal dis tention. No COVID exposures. No sick contacts. No recent travel. No new food exposures. Past Medical History: Negative. Past Surgical History: Negative. Allergies: TO PENICILLIN. Medications: None. Social History: She denies smoking, alcohol, or recreational drug use. She is unemployed and stays at home with her children. Review of Systems: Ten-point review of systems other than HPI, denies. Physical Examination: At the time of my examination: General: She is awake, alert, oriented. Psychiatric: She is appropriate, conversive. HEENT: Normocephalic. Sclerae anicteric. Mucous membranes moist. Oropharynx clear. Neck: Supple without JVD. Chest: Normal expansion and excursion. Cardiovascular: Regular rate and rhythm. Pulmonary: Clear to auscultation bilaterally. Abdomen: Soft with mild right upper quadrant tenderness to palpation. Positive Rodriguez sign. No abd ominal scars. Her abdomen is obese generally. Extremities: No clubbing, cyanosis, edema. Skin: Warm and dry. Laboratory Data: Reveals a white blood cell count of 10.8, hemoglobin 12.8, hematocrit of 40.2, plat elet count is 534, neutrophils 67%. Her sodium is 140, potassium 3.5, chloride 107, carbon dioxide 2 9, BUN 13, creatinine 0.8, glucose is 97, total bilirubin 0.4, direct component 0.1, AST 12, ALT 15, alkaline phosphatase 78, lipase is 146. Her UA showed 2+ blood and trace leukocyte esterase. Her ur ine test was negative. She had imaging performed, which included an abdominal ultrasound, which was officially read as a single large mobile gallstone with gallbladder wall thickening and tra ce amount of pericholecystic fluid. No duct stone or biliary tree dilatation. She additionally had an abdomen and pelvis CT performed as well. Radiology reading was read as cholelithiasis with wall t hickening of the gallbladder. These findings could be seen with acute cholecystitis. Right upper qu adrant ultrasound may be helpful. Hepatomegaly additionally. Assessment And Plan: This is a 35-year-old female who comes in with signs and symptoms of acute calc ulous cholecystitis. 1.IV fluid hydration. 2.Antibiotic coverage. 3.I have explained risks, benefits, and alternatives of laparoscopic possible open cholecystectomy i ncluding but not limited to bleeding, infection, damage to surrounding tissues, injury to the interna l organs such as bile ducts, intestines, need for further operations, bile leak, heart attack, stroke , blood clots, and other unforeseen complications related to surgery or anesthesia. The patient agre es to proceed as indicated. BI/MAISHA Voice ID: [id number]
--- NOTE | 2020-08-15 12:28 | P.OP ---
Preoperative diagnosis: Acute Calculous Cholecystitis Postoperative diagnosis: Acute Calculous Cholecystitis Primary procedure: Laparoscopic Cholecystectomy Anesthesia: GETA + Local Estimated blood loss: <5cc Specimen: Gallbladder Findings: Gallstones, Cholecystitis, Hepatic Steatosis Transferred to: Recovery Room Condition: Good
--- NOTE | 2020-08-15 12:59 | OP ---
Date of Procedure: 08/15/2020 Surgeon: Nico Morrell MD, Preoperative Diagnosis: Acute calculous cholecystitis. Postoperative Diagnosis: Acute calculous cholecystitis. Procedure Performed: Laparoscopic cholecystectomy. Anesthesia: General endotracheal plus local with 0.25% Marcaine. Estimated Blood Loss: Less than 5 mL. Specimen: Gallbladder. Findings: Gallstones, cholecystitis, and hepatic steatosis. Disposition: The patient was transferred to recovery room in good condition. Procedure In Detail: After informed consent was obtained, the patient was brought to the operating r oom, prepped and draped in the usual sterile fashion. After adequate anesthesia achieved, the suprau mbilical area was anesthetized with 0.25% Marcaine and sharply incised. A 5 mm 0-degree optical troc ar was introduced in the abdomen without evidence of complication. Insufflation was obtained to 15 m mHg at this time. Three additional trocars were placed under direct visualization without evidence o f complication, 1 in the epigastrium, 2 in the right upper quadrant. Both of these were similarly an esthetized, sharply incised, and placed without evidence of complication. The patient was reposition ed head up right-side up position. The umbilical trocar was upsized to a 12 mm under direct visualiz ation without evidence of complication. A grasper was used to grasp the patient's gallbladder, place d towards the patient's right shoulder. Dissection was continued down to remove the omentum off the anterior surface of the gallbladder. There were inflammatory changes and a large appendix stone in t he gallbladder. Dissection was continued down to the cystic duct and cystic artery. Both of these w ere skeletonized and a critical view of safety was obtained at this point. There was significant inf lammatory change to the wall of the gallbladder in this area, particularly between the biliary tract structures and the liver. The anterior surface was not as inflamed as the posterior aspect of the ga llbladder. After the cystic duct and cystic artery were encircled and skeletonized, double titanium clips were placed on the proximal side of both the cystic duct and cystic artery and singly on the di stal side of the cystic duct and cystic artery. These structures were then ligated with Endo Dc. The gallbladder was removed with the hepatic fossa with minimal bleeding. The gallbladder was then placed in EndoCatch bag, removed the umbilical trocar. Reinspection at this point found that the cl ips found to be in good anatomic position. There was some bleeding from the distal aspect of the hep atic bed near the fundus area. This required an extensive fulguration, but good hemostasis was achie dom. The area was copiously irrigated multiple times until completely clear. I desufflated the abdo men slightly under lower pressure and inspected for any additional bleeding from the hepatic fossa, n one was appreciated at this point. I irrigated the area once again, suctioned out until completely d ry. No additional hemostatic measures required. As such, the patient positioned back in a neutral p osition. The umbilical trocar site was closed using a Gordy-Jodie suture passer with 0 Vicryl in an interrupted fashion with good approximation of tissues. The remaining trocars were removed under direct visualization without evidence of complication. The abdomen after being completely desufflat ed was soft and the skin incisions were then all copiously irrigated and closed with interrupted stap les. A sterile dressing was placed over the top. The patient tolerated the procedure well without e vidence of complication and transferred to PACU in good condition. All counts were correct at the en d of the case. BI/MAISHA Voice ID: [id number] Report ID: [id number]
[2020-08-15] MEDS: Ringers Lactate 1,000 ML IV SCH ×3 (13:00→23:00)
[2020-08-15] MEDS ORDERED: HYDROMORPHONE HCL 1 MG/ML INJ ONE (13:06)
[2020-08-15 15:49] VITALS: BMI 29.0
[2020-08-15] MEDS: METRONIDAZOLE 500mg IVPB 500 MG/100 ML BAG IV SCH (16:23)
[2020-08-15] MEDS: INSULIN -REGULAR HUMAN 50 UNIT/0.5 ML ML SQ SCH ×2 (16:30→21:00)
[2020-08-15] MEDS: HYDROCODONE/APAP 7.5/325 MG TAB PO PRN (18:46)
[2020-08-15] MEDS: CIPROFLOXACIN 400mg IV 400 MG/200 ML BAG IV SCH (21:00)
[2020-08-16 00:27] VITALS: O2SAT 98
[2020-08-16] MEDS: HYDROCODONE/APAP 7.5/325 MG TAB PO PRN ×2 (00:43→08:55)
[2020-08-16] MEDS: METRONIDAZOLE 500mg IVPB 500 MG/100 ML BAG IV SCH ×2 (00:43→08:54)
[2020-08-16 06:23] LABS: Absolute Lymphocytes (CBC) 1.4 K/uL (0.7-4.9); Basophils % 0.3 % (0-1.3); Hematocrit 33.1 % (36.0-45.0); Lymphocytes % 12.4 % (15.3-44.8); MPV 8.3 fL (7.6-11.3); RBC Red Blood Cell Count 3.81 M/uL (3.86-4.86)
[2020-08-16 06:37] LABS: ALT/SGPT 18 U/L (12-78); AST/SGOT 20 U/L (15-37); Alkaline Phosphatase 65 U/L (45-117); BUN Blood Urea Nitrogen 9 mg/dL (7-18); Bicarbonate 26 mmol/L (21-32); Bilirubin Total 0.6 mg/dL (0.2-1.0); Glucose Level 99 mg/dL (74-106); Magnesium 1.9 mg/dL (1.8-2.4); Phosphorus 3.2 mg/dL (2.5-4.9); Potassium 3.8 mmol/L (3.5-5.1); Protein, Total 6.6 g/dL (6.4-8.2); Sodium Level 140 mmol/L (136-145)
[2020-08-16] MEDS: INSULIN -REGULAR HUMAN 50 UNIT/0.5 ML ML SQ SCH (07:30)
[2020-08-16] MEDS: CIPROFLOXACIN 400mg IV 400 MG/200 ML BAG IV SCH (08:54)
[2020-08-16] MEDS: Ringers Lactate 1,000 ML IV SCH (09:00)
[2020-08-16] MEDS ORDERED: POTASSIUM CL SA 10 MEQ TAB PO ONE (09:00)
[2020-08-16 09:13] LABS: Blood Morphology Comment NOT SEEN (NOT SEEN); Platelet Estimate INCR; White Blood Cell Scan OK (OK)
[2020-08-16 09:39] VITALS: BP 101/55; TEMP 97.9
--- NOTE | 2020-08-16 10:29 | RAD REPORT ---
EXAM DESCRIPTION: CT - Abdomen Pelvis W Contrast - 08/15/2020 7:18 am CLINICAL HISTORY: ABD PAIN COMPARISON: None Available. TECHNIQUE: CT of the abdomen and pelvis performed following IV administration of iodinated contras t. FINDINGS: Lung Bases: The visualized lung bases are clear. Bones: No destructive bone lesions identified. Abdomen: Liver: Hepatomegaly. No intrahepatic biliary dilatation. Gallbladder: Calcified gallstone with mild gallbladder wall thickening. Spleen, Pancreas, and Adrenal Glands: The spleen, pancreas, and adrenal glands are unremarkable. Kidneys: No hydronephrosis or obstructing calculus. Vasculature: The aorta and IVC have normal caliber and position. The portal vein is patent. The pro ximal visceral and renal arteries are patent. Stomach: The stomach and duodenum have normal course. Other: No free intraperitoneal air. No free fluid or lymphadenopathy. Tiny fat-containing umbilic al hernia. Pelvis: Bladder: Urinary bladder is unremarkable. Bowel: No dilated loops of large or small bowel. Appendix: Normal appendix. Pelvis: Uterus is not enlarged. IMPRESSION: 1. Cholelithiasis with wall thickening of the gallbladder. These findings could be seen with acute cholecystitis. Right upper quadrant ultrasound may be helpful. 2. Hepatomegaly. This exam was performed according to our departmental dose-optimization program, which includes autom ated exposure control, adjustment of the mA and/or kV according to patient size and/or use of iterati ve reconstruction technique. Electronically signed by: Johnnie Meadows 08/15/2020 5:47 AM [employer] Due to temporary technical issues with the PACS/Fluency reporting system, reports are being signed by the in house radiologist without review as a courtesy to ensure prompt reporting. The interpreting r adiologist is fully responsible for the content of the report.
== END 2020-08-16 10:57 | disposition home or self-care (01) | DRG 419 ==
LOC: ER 03:27 → ERHOLD 08:11 → 2ND 12:16 → OBSVTOIN 08-16 07:57
PROVIDERS: ADMIT Surgery; ATTEND Surgery
PROC: 0FT44ZZ Resection of Gallbladder, Percutaneous Endoscopic Approach (ICD-10-PCS; principal; 2020-08-15 11:00)
DX: K80.00 Calculus of gallbladder with acute cholecystitis without obstruction (principal); Z88.0 Allergy status to penicillin; Z56.0 Unemployment, unspecified
CPT/HCPCS: 36415; 74177; 76705; 80048; 80053; 80076; 81003; 81025; 82947; 83690; 83735; 84100; 85025; 88304; 94010; 96365; 96366; 96368; 96375; 99285; J0744; J1100; J1170; J2405; J2550; J2704; J2710; J3010; J7030; J7120; Q9967